=== PATIENT | female | born 1985 | race Hispanic/Latino ===

== ENCOUNTER 2022-05-27 12:28 | Emergency (ER) | payer BC, OTHER ==
[~2022-05-27] VITALS: Ht 182.9 cm; Wt 111.1 kg
[2022-05-27 12:55] LABS: APPEARANCE,URINE TURBID (CLEAR); BILIRUBIN,URINE NEGATIVE (NEGATIVE); COLOR,URINE YELLOW (YELLOW); GLUCOSE, URINE (UA) NEGATIVE (NEGATIVE); KETONES,URINE NEGATIVE (NEGATIVE); LEUKOCYTE ESTERASE ,URINE 500 Leu/uL (NEGATIVE); NITRATE,URINE NEGATIVE (NEGATIVE); OCCULT BLOOD,URINE NEGATIVE (NEGATIVE); PROTEIN,URINE 20 mg/dL (NEGATIVE)
[2022-05-27 13:26] LABS: BASOPHILS % (AUTO) 0.8 % (0.0-5.0); EOSINOPHILS % (AUTO) 1.2 % (0.0-8.0); HEMATOCRIT 40.8 % (36-48); LYMPHOCYTES % (AUTO) 25.6 % (21.0-51.0); MEAN CORPUSCULAR HEMOGLOBIN 26.8 pg (27.0-33.0); MEAN CORPUSCULAR HGB CONC 32.4 g/dL (32.0-36.0); MEAN CORPUSCULAR VOLUME 82.9 fL (79-99); MONOCYTES % (AUTO) 6.9 % (3.0-13.0); NEUTROPHILS % (AUTO) 65.3 % (40.0-77.0); PLATELET COUNT (AUTO) 292 K/uL (130-400); RED BLOOD CELL COUNT(AUTO) 4.92 MIL/uL (4.00-5.50); RED CELL DISTRIBUTION WIDTH 13.5 % (11.0-15.5); WHITE BLOOD COUNT (AUTO) 6.5 K/uL (4.8-10.8)
[2022-05-27 13:36] LABS: POTASSIUM 3.8 mmol/L (3.5-5.1)
[2022-05-27 13:37] LABS: BACTERIA,URINE FEW /HPF (None Seen); MUCUS,URINE RARE LPF (None Seen); SQUAMOUS EPITHELIAL CELL,UR MANY /HPF (0-2); WBC,URINE 51-100 /HPF (0-1)
[2022-05-27 13:40] LABS: HCG,QUALITATIVE URINE NEGATIVE (NEGATIVE)
[2022-05-27 13:40] LABS: ALBUMIN 4.1 g/dL (3.5-5.0); TOTAL PROTEIN, SERUM 8.3 g/dL (6.0-8.3)
[2022-05-27] MEDS ORDERED: KETOROLAC 15MG/ML VIAL (15MG/ML) IV ONE (14:00)
[2022-05-27] MEDS ORDERED: MORPHINE 2 MG SYG IVP ONE (14:30)
[2022-05-27] MEDS ORDERED: ONDANSETRON 4MG INJ IVP ONE (14:30)
[2022-05-27] MEDS ORDERED: IOHEXOL 350 MG/ML 100ML INFUS..BTL IV ONE (14:46)
[2022-05-27] MEDS ORDERED: CEFTRIAXONE 1G VIAL IVP ONE (15:00)
[2022-05-27] MEDS ORDERED: PHEN-847 PO (15:35)
[2022-05-27] MEDS ORDERED: CEPH500B PO (15:35)
[2022-05-27] MEDS ORDERED: NAPR500T6 PO (15:35)
[2022-05-27 16:46] VITALS: BP 131/87
== END 2022-05-27 16:51 | disposition home or self-care (01) ==
LOC: EDH 12:28
DX: N39.0 Urinary tract infection, site not specified (principal); Z88.0 Allergy status to penicillin; Z79.899 Other long term (current) drug therapy
CPT/HCPCS: 99285; 74177; 96374; 96375; 80053; 83690; 85025; 87088; 81001; 81025; 36415; J0696; J2405; J1885; Q9967